=== PATIENT | male | born 1975 | race Caucasian/White ===

== ENCOUNTER 2018-07-27 11:51 | Emergency (ER) | payer OTHER ==
[2018-07-27 12:00] VITALS: BP 137/89
--- NOTE | 2018-07-27 13:32 | ED ---
Back Pain - HPI Summary HPI Summary: Patient is a 43-year-old male presenting to the ED with chief complaint of left posterior buttocks and hip discomfort times proximally one week which radiates down the posterior leg into the knee and into the calf causing weakness to the leg intermittently. Denies any bladder or bowel dysfunction. Denies any foot drop or tripping over the leg. He states the symptoms of been intermittent. The pain feels as a "shooting" pain starting to the midline of the buttocks and radiating down. He has tried ibuprofen, moist heat and stretches with mild relief. He was concerned over a leg injury. Denies any injury, trauma or recent infection. - History of Current Complaint Chief Complaint: EDExtremityLower Stated Complaint: LT LOWER EXTREMITY PAIN Time Seen by Provider: 07/27/18 12:06 Hx Obtained From: Patient Onset/Duration: Sudden Onset Onset/Duration: Started Hours Ago Timing: Constant Back Pain Location: Is Discrete @ - left lumbar area Pain Intensity: 4 Pain Scale Used: 0-10 Numeric Character: Aching Associated Signs And Symptoms: Positive: Weakness, Numbness, Tingling. Negative : Swelling, Redness, Bladder Incontinence, Bowel Incontinence, Weight Loss, Pain with Weight Bearing - Risk Factors AAA Risk Factors: Negative TAD Risk Factors: Negative Cauda Equina Risk Factors: Negative Epidural Abscess Risk Factors: Negative - Allergies/Home Medications Allergies/Adverse Reactions: Allergies Allergy/AdvReac Type Severity Reaction Status Date / Time No Known Allergies Allergy Verified 07/27/18 12:00 PMH/Surg Hx/FS Hx/Imm Hx Previously Healthy: Yes Endocrine/Hematology History: Denies: Hx Diabetes, Hx Systemic Lupus Erythematosus Cardiovascular History: Denies: Hx Aneurysm, Hx Angina, Hx Congenital Heart Disease, Hx Congestive Heart Failure, Hx Hypertension, Other Cardiovascular Problems/Disorders GI History: Reports: Other GI Disorders - inj abd muscle History: Denies: Hx Dialysis, Hx Renal Disease Musculoskeletal History: Denies: Hx Rheumatoid Arthritis - Cancer History Hx Chemotherapy: No - Immunization History Hx Pertussis Vaccination: No Immunizations Up to Date: Yes Infectious Disease History: No Infectious Disease History: Denies: Traveled Outside the [place] in Last 30 Days - Social History Occupation: Employed Full-time Lives: With Family Alcohol Use: Rare Hx Substance Use: No Substance Use Type: Reports: None Smoking Status (MU): Never Smoked Tobacco Review of Systems Constitutional: Negative Negative: Fever, Chills, Fatigue, Skin Diaphoresis Negative: Palpitations, Chest Pain Negative: Shortness Of Breath, Cough Genitourinary: Negative Positive: no symptoms reported Negative: Arthralgia Skin: Negative Neurological: Negative All Other Systems Reviewed And Are Negative: Yes Physical Exam Triage Information Reviewed: Yes Vital Signs On Initial Exam: Initial Vitals Temp Pulse Resp BP Pulse Ox 98.3 F 82 14 137/89 98 07/27/18 11:57 07/27/18 11:57 07/27/18 11:57 07/27/18 11:57 07/27/18 11:57 Vital Signs Reviewed: Yes Appearance: Positive: No Pain Distress, Well-Nourished Skin: Positive: Warm, Skin Color Reflects Adequate Perfusion Head/Face: Positive: Normal Head/Face Inspection Eyes: Positive: EOMI, CURTIS, Conjunctiva Clear Neck: Positive: Supple Respiratory/Lung Sounds: Positive: Clear to Auscultation, Breath Sounds Present Cardiovascular: Positive: RRR, Pulses are Symmetrical in both Upper and Lower Extremities Musculoskeletal: Positive: Strength/ROM Intact, Pain @ - right sciatic notch raditating down the posterior leg. Negative: Edema Left, Edema Right Neurological: Positive: Facial Symmetry, Speech Normal Psychiatric: Positive: Normal, Affect/Mood Appropriate Diagnostics - Vital Signs Vital Signs Temp Pulse Resp BP Pulse Ox 07/27/18 11:57 98.3 F 82 14 137/89 98 - Laboratory Lab Statement: Any lab studies that have been ordered have been reviewed, and results considered in the medical decision making process. Back Pain Course/Dx - Course Course Of Treatment: Physical examination, patient has tenderness directly over the sciatic notch on direct palpation. He is also expressing tenderness to the bilateral lateral sides of the hips possibly indicating a hip bursitis. He states symptoms have been worse at night. Denies any bladder or bowel dysfunction. Denies any foot drop. Denies any weakness to the left leg, however feels some numbness and tingling intermittently throughout the leg. I have discussed sciatica, lumbar radiculopathy impure Forma syndrome is possible etiologies. He is given a short course of steroids and will continue to use moist heat. I have given him gentle stretches to do as well. No pain or tenderness directly over the spine. - Diagnoses Differential Diagnosis/HQI/PQRI: Positive: Strain, Sprain Provider Diagnoses: Sciatic leg pain Discharge - Sign-Out/Discharge Documenting (check all that apply): Patient Departure - Discharge Plan Condition: Stable Disposition: HOME Prescriptions: predniSONE TAB* [Deltasone TAB*] 50 mg PO DAILY #5 tab MDD 1 Patient Education Materials: Sciatica (ED), Lumbar Radiculopathy (ED), Lower Back Exercises (ED) Referrals: No Primary Care Phys,NOPCP [Primary Care Provider] - Additional Instructions: Prednisone once daily in the morning x 5 days Ibuprofen 600mg three times daily for discomfort Gentle stretches Moist heat - Billing Disposition and Condition Condition: STABLE Disposition: Home
== END 2018-07-27 13:19 | disposition home or self-care (01) ==
LOC: ED 11:51
DX: M54.30 Sciatica, unspecified side (principal)
CPT/HCPCS: 99281

== ENCOUNTER 2019-08-05 17:31 | Emergency (ER) | payer BC, MEDICAID ==
--- NOTE | 2019-08-05 19:57 | ED ---
Back Pain - HPI Summary HPI Summary: Patient complains of right hip pain and right side pain status post fall yesterday. Denies head injury, vision change, N/V, any other pain, injury or symptoms. Patient ambulatory. Medical history is none. - History of Current Complaint Chief Complaint: EDExtremityLower Stated Complaint: HIP ,BACK,RT LEG PAIN PER PT Time Seen by Provider: 08/05/19 19:37 Hx Obtained From: Patient Onset/Duration: Sudden Onset, Lasting Days Onset/Duration: Started Days Ago Timing: Constant Back Pain Location: Is Discrete @ Severity Initially: Moderate Severity Currently: Moderate Pain Intensity: 6 Pain Scale Used: 0-10 Numeric Character: Dull, Aching, Throbbing Aggravating Symptom(s): Movement Associated Signs And Symptoms: Positive: Negative - Allergies/Home Medications Allergies/Adverse Reactions: Allergies Allergy/AdvReac Type Severity Reaction Status Date / Time No Known Allergies Allergy Verified 08/05/19 21:35 PMH/Surg Hx/FS Hx/Imm Hx Endocrine/Hematology History: Denies: Hx Diabetes, Hx Systemic Lupus Erythematosus Cardiovascular History: Denies: Hx Aneurysm, Hx Angina, Hx Congenital Heart Disease, Hx Congestive Heart Failure, Hx Hypertension, Other Cardiovascular Problems/Disorders GI History: Reports: Other GI Disorders - inj abd muscle History: Denies: Hx Dialysis, Hx Renal Disease Musculoskeletal History: Denies: Hx Rheumatoid Arthritis Sensory History: Denies: Hx Eye Prosthesis Opthamlomology History: Denies: Hx Legally Blind EENT History: Denies: Hx Deafness Neurological History: Denies: Hx CVA - Cancer History Hx Chemotherapy: No Infectious Disease History: No Infectious Disease History: Denies: Traveled Outside the [place] in Last 30 Days - Family History Known Family History: Positive: Non-Contributory - Social History Alcohol Use: Rare Hx Substance Use: No Substance Use Type: Reports: None Smoking Status (MU): Never Smoked Tobacco Review of Systems Constitutional: Negative Eyes: Negative ENT: Negative Cardiovascular: Negative Respiratory: Negative Gastrointestinal: Negative Genitourinary: Negative Musculoskeletal: Other Skin: Negative Neurological: Negative Psychological: Normal All Other Systems Reviewed And Are Negative: Yes Physical Exam - Summary Physical Exam Summary: No ecchymosis, erythema, deformity, swelling noted to right hip or right side. Lung sounds clear to auscultation bilaterally. Patient moving right lower extremity with some mild pain, full flexion and extension of right hip, right knee and right ankle. Calf soft nontender. PMS intact distally. Triage Information Reviewed: Yes Vital Signs On Initial Exam: Initial Vitals Temp Pulse Resp BP Pulse Ox 97.3 F 84 18 144/94 96 08/05/19 17:43 08/05/19 17:43 08/05/19 17:43 08/05/19 17:43 08/05/19 17:43 Vital Signs Reviewed: Yes Appearance: Positive: Well-Appearing Skin: Positive: Warm Head/Face: Positive: Normal Head/Face Inspection Eyes: Positive: Normal Dental: Negative: Dental Fracture @, Bleeding Neck: Positive: Supple Respiratory/Lung Sounds: Positive: Clear to Auscultation Cardiovascular: Positive: Normal Abdomen Description: Positive: Nontender Musculoskeletal: Positive: Normal Neurological: Positive: Normal Psychiatric: Positive: Normal AVPU Assessment: Alert - [place] Coma Scale Best Eye Response: 4 - Spontaneous Best Motor Response: 6 - Obeys Commands Best Verbal Response: 5 - Oriented Coma Scale Total: 15 Procedures - Sedation Patient Received Moderate/Deep Sedation with Procedure: No Diagnostics - Vital Signs Vital Signs Temp Pulse Resp BP Pulse Ox 08/05/19 19:21 98.2 F 75 18 137/82 96 08/05/19 17:43 97.3 F 84 18 144/94 96 - Laboratory Lab Statement: Any lab studies that have been ordered have been reviewed, and results considered in the medical decision making process. Back Pain Course/Dx - Course Course Of Treatment: Patient complains of right hip pain and right side pain status post fall yesterday. Denies head injury, vision change, N/V, any other pain, injury or symptoms. Patient ambulatory. Medical history is none. Vital signs within normal limits. Pain improved with Valium and Toradol. - Diagnoses Provider Diagnoses: Back pain, Muscle spasm, Fall Discharge ED - Sign-Out/Discharge Documenting (check all that apply): Patient Departure - yes. - Discharge Plan Condition: Stable Disposition: HOME Prescriptions: Diazepam TAB(*) [Valium TAB(*)] 5 mg PO TID PRN 2 Days #5 tab MDD 3 tabs PRN Reason: Spasms Lidocaine PATCH 5%* [Lidoderm 5% Patch*] 1 patch TRANSDERM DAILY 4 Days #4 patch Patient Education Materials: Muscle Spasm (ED), Back Pain (ED) Forms: *Work Release Referrals: No Primary Care Phys,NOPCP [Primary Care Provider] - Additional Instructions: Take ibuprofen 600 mg every 6 hours for 3 days. Use lidocaine patches as directed for back pain. Take Valium as directed for muscle spasm. Follow-up with primary care. Return to the ED for any new or worsening symptoms. - Billing Disposition and Condition Condition: STABLE Disposition: Home - Attestation Statements Provider Attestation: I was available for consult. This patient was seen by the [facility]. The patient was not presented to, seen by, or examined by me. Arnaud Miranda MD
[2019-08-05] MEDS: Diazepam TAB(*) 5 MG PO ONE (20:29)
[2019-08-05] MEDS: Ketorolac INJ* 30 MG/ML 1 ML VIAL IM ONE (20:31)
[2019-08-05] MEDS: Lidocaine PATCH 5%* 1 PATCH TRANSDERM SCH (20:32)
[2019-08-05] MEDS ORDERED: Lidocaine Patch REMOVE* 1 NOTE MISC SCH (21:00)
[2019-08-05 21:35] VITALS: BP 136/77
== END 2019-08-05 21:15 | disposition home or self-care (01) ==
LOC: ED 17:31
DX: M54.9 Dorsalgia, unspecified (principal); M62.838 Other muscle spasm; W19.XXXA Unspecified fall, initial encounter; Y92.9 Unspecified place or not applicable
CPT/HCPCS: 96372; 99282; A9270-GY; J1885

== ENCOUNTER 2022-01-15 18:45 | Inpatient (IN) ==
[2022-01-15 20:11] LABS: ABS Basophils 0.1 10^3/ul (0-0.2); ABS Eosinophils 0.1 10^3/ul (0-0.6); ABS Lymphocytes 2.7 10^3/ul (1.0-4.8); ABS Monocytes 0.4 10^3/ul (0-0.8); ABS Neutrophils 3.4 10^3/ul (1.5-7.7); Eosinophil % 2.2 %; Hematocrit 42 % (42-52); Hemoglobin 14.4 g/dL (14.0-18.0); Lymphocyte % 39.9 %; Mean Corpuscular HGB Conc 34 g/dL (31-36); Mean Corpuscular Hemoglobin 32 pg (27-31); Mean Corpuscular Volume 92 fL (80-94); Mean Platelet Volume 7.4 fL (7.4-10.4); Platelet Count 261 10^3/uL (150-450); Red Blood Count 4.56 10^6 /uL (4.18-5.48); Red Cell Distribution Width 15 % (10-15); White Blood Count 6.7 10^3/uL (3.5-10.8)
[2022-01-15 20:53] LABS: ALT 22 U/L (7-52); AST 28 U/L (13-39); Acetaminophen < 15 mcg/mL; Albumin 4.8 g/dL (3.2-5.2); Albumin/Globulin Ratio 2.2 (1-3); Alkaline Phosphatase 51 U/L (35-149); Anion Gap 8 mmol/L (2-11); Blood Urea Nitrogen 11 mg/dL (6-24); CO2 Carbon Dioxide 29 mmol/L (22-32); Calcium 9.4 mg/dL (8.6-10.3); Chloride 107 mmol/L (101-111); Creatine Kinase 332 U/L (10-223); Globulin 2.2 g/dL (2-4); Glucose 91 mg/dL (70-100); Potassium 4.7 mmol/L (3.5-5.0); Salicylate < 2.50 mg/dL (<30); Sodium 144 mmol/L (135-145); eGFR CKD-EPI 90.2 (>60)
[2022-01-15 22:04] LABS: Urine Appearance Clear; Urine Bilirubin Negative (Negative); Urine Blood Negative (Negative); Urine Color Straw; Urine Glucose Negative (Negative); Urine Ketones Negative (Negative); Urine Nitrite Negative (Negative); Urine Protein Negative (Negative); Urine Specific Gravity 1.004 (1.002-1.030); Urine Urobilinogen Negative (Negative)
[2022-01-15 22:17] LABS: Urine Benzodiazepine Screen None Detected (None Detect); Urine Cannabinoids Screen None Detected (None Detect); Urine Opiates Screen None Detected (None Detect)
[2022-01-16] MEDS ORDERED: Nicotine PATCH 14 MG/24 HR PATCH TRANSDERM ONE (09:26)
[2022-01-16] MEDS ORDERED: Al Hydrox/Mg Hydrox/Simet LIQ 30 ML UDC PO PRN (11:19)
[2022-01-16] MEDS: Multivitamins/Minerals TAB PO SCH (11:56)
[2022-01-17] MEDS: Multivitamins/Minerals TAB PO SCH (07:17)
[2022-01-17 08:18] LABS: HDL Cholesterol 67.9 mg/dL
[2022-01-17] MEDS: Nicotine Lozenge mini 4 MG LOZNG.MINI MT PRN ×5 (08:36→19:42)
[2022-01-18] MEDS: Multivitamins/Minerals TAB PO SCH (07:43)
[2022-01-18] MEDS: Nicotine Lozenge mini 4 MG LOZNG.MINI MT PRN ×6 (08:58→21:59)
[2022-01-19] MEDS: Multivitamins/Minerals TAB PO SCH (08:23)
[2022-01-19] MEDS: Nicotine Lozenge mini 4 MG LOZNG.MINI MT PRN ×7 (08:24→22:07)
[2022-01-20] MEDS: Multivitamins/Minerals TAB PO SCH (07:40)
[2022-01-20] MEDS: Nicotine Lozenge mini 4 MG LOZNG.MINI MT PRN (07:40)
[2022-01-20 08:47] VITALS: BP 106/79
== END 2022-01-20 10:30 | disposition home or self-care (01) | DRG 755 ==
LOC: ED 18:45 → EDHOLD 01-16 11:33 → BSU 01-16 14:05
PROVIDERS: ADMIT Psychiatry & Neurology Psychiatry; ATTEND Psychiatry & Neurology Psychiatry